=== PATIENT | male | born 1955 | race Caucasian/White ===

== ENCOUNTER 2016-06-20 17:50 | Emergency (ER) | payer OTHER ==
--- NOTE | 2016-06-20 18:10 | CPEKG ---
Heart Rate: 100 RR Interval: 600 QRSD Interval: 94 QT Interval: 364 QTC Interval: 470 QRS Dorr: -18 T Wave Dorr: 6 EKG Severity - ABNORMAL ECG - EKG Impression: NSR, Rate approx. 80 - (motion artifact due to Parkinson's) EKG Impression: BORDERLINE LEFT AXIS DEVIATION Electronically Signed By: Jimbo Reed 21-Jun-2016 00:05:50
[2016-06-20 18:34] VITALS: RESP 16
[2016-06-20 18:35] LABS: % IMMATURE GRANULYOCYTES 0.5 % (0.0-1.1); ABSOLUTE IMMATURE GRANULOCYTES 0.05 10^3/uL (0.00-0.10); ADD DIFF? NO; ADD MORPH? NO; ADD SCAN? NO; ATYPICAL LYMPHOCYTE FLAG 0 (0-99); FRAGMENT RBC FLAG 0 (0-99); HEMATOCRIT 46.7 % (40.0-51.0); HEMOGLOBIN 15.4 g/dL (13.7-17.5); LEFT SHIFT FLG 0 (0-99); LIPEMIA HEMOLYSIS FLAG 80 (0-99); MEAN CELL HEMOGLOBIN 29.3 pg (27.9-34.1); MEAN PLATELET VOLUME 9.5 fL (8.7-11.7); PLATELET CLUMPS FLAG 0 (0-99); PLATELET COUNT 310 10^3/uL (150-400); RED BLOOD CELL COUNT 5.25 10^6/uL (4.40-6.38); RED CELL DISTRIBUTION WIDTH 13.4 % (11.5-15.2)
[2016-06-20 18:37] LABS: COLOR YELLOW; LEUKOCYTE ESTERASE,URINE NEGATIVE (NEGATIVE); NITRITE,URINE NEGATIVE (NEGATIVE); PH,URINE 5.5 (5.0-7.5)
[2016-06-20 18:47] LABS: ANION GAP 13 mEq/L (8-16); CALCIUM 8.9 mg/dL (8.5-10.4); CARBON DIOXIDE 26 mEq/l (22-31); CHLORIDE 105 mEq/L (97-110); CREATININE 0.9 mg/dL (0.7-1.3); GLOMERULAR FILTRATION RATE > 60; GLUCOSE 100 mg/dL (70-100); POTASSIUM 4.1 mEq/L (3.5-5.2); SODIUM 144 mEq/L (134-144)
[2016-06-20 18:53] LABS: BACTERIA 1+ /hpf (NONE SEEN); HYALINE CASTS 0-1 /lpf (0-1); MUCUS 3+ /lpf (NONE-1+); RBC,URINE OCCASIONAL /hpf (0-3)
[2016-06-20 19:07] LABS: TROPONIN I 0.014 ng/mL (0-0.034)
[2016-06-20 19:35] VITALS: O2SAT 94
--- NOTE | 2016-06-20 20:03 | UCPHY ---
H & P Patient Type: Established Chief Complaint Nursing Narrative: C/o high BP (systolic 195) when checked at [facility], feeling flushed, L arm pain, dry mouth, L arm tremors that is not going away after Parkinson's medications, and trouble urinating. Denies SOB, chest pain. Time Seen by Provider: 06/20/16 17:58 HPI/ROS: This patient complains of hypertension and anxiety. He has a history of Parkinson's disease and they have been trying to titrate his carbidopa levodopa to leave eat some of his tremors but he has had some anxiety and racing thoughts with higher dosages. He was recently prescribed Seroquel for sleep. He is also taking Xanax p.r.n.. He had 0.25 mg at 5:30 p.m.. Despite compliance with his lisinopril 5 mg he has had significant hypertension over the past 24 hours. He also reports intermittent left arm ache that he thinks may be due to his Parkinson's tremor. He describes this is near his shoulder but because of the hypertension him the arm achy want to be sure that he was not having a heart problem. ROS: No fevers or chills. No constitutional symptoms. HEENT: He has a mild frontal 2/10 headache similar to previous headaches. Endocrine: Reports feeling slightly hot but no other endocrine symptoms. Pulmonary: No shortness of breath or coughing. Cardiovascular: No lightheadedness or heart palpitations. No lower extremity swelling. No diaphoresis GI: No nausea vomiting. No belly pain. Psychiatric: He admits some anxiety and asks "is (he) going crazy. He denies any focal neuro complaints. 10 point ROS is otherwise negative Source: Patient, Family (His also provides history.) Exam Limitations: No limitations - Personal History Current Tetanus Diphtheria and Acellular Pertussis (TDAP): Yes Tetanus Vaccine Date: within 10 years - Medical/Surgical History PMH: Parkinson's Hx Asthma: No Hx Chronic Respiratory Disease: No Hx Diabetes: No Hx Cardiac Disease: No Hx Renal Disease: Yes Hx Cirrhosis: No Hx Alcoholism: No Hx HIV/AIDS: No Hx Splenectomy or Spleen Trauma: No Other PMH: parkinsons, renal ca with surgery (RCC), hernia, thyroid cancer, melanoma, HTN, anxiety - Family History Significant Family History: No pertinent family hx - Social History Smoking Status: Never smoked Alcohol Use: None Drug Use: None - Physical Exam Exam: General Appearance: Alert, no distress. Eyes: Pupils equal and round no pallor or injection. ENT, Mouth: Mucous membranes moist. Respiratory: There are no retractions, lungs are clear to auscultation. Cardiovascular: Regular rate and rhythm. No murmur gallop or rub. No JVD. No peripheral edema. Gastrointestinal: Abdomen is soft and nontender, no masses, bowel sounds normal. Neurological: Alert. He has a parkinsonian tremor most prevalent his upper extremities. Skin: Warm and dry, no rashes. Musculoskeletal: Neck is supple nontender. Extremities are symmetrical, full range of motion. Psychiatric: Patient is anxious. He has mild flight of ideas but no psychotic symptoms. He is pleasant cooperative while here. DIFFERENTIAL DIAGNOSIS: After history and physical exam differential diagnosis was considered for Parkinson med side effects, anxiety, hypertensive urgency versus emergency Constitutional: Initial Vital Signs Temperature (C) 37.3 C 06/20/16 18:00 Heart Rate 101 H 06/20/16 18:00 Respiratory Rate 18 06/20/16 18:00 Blood Pressure 183/133 H 06/20/16 18:00 O2 Sat (%) 96 06/20/16 18:00 O2 Delivery Mode Room Air Allergies/Adverse Reactions: aspirin Allergy (Unknown, Verified 06/20/16 18:10) Unknown naproxen sodium [From Aleve] Allergy (Unknown, Verified 06/20/16 18:10) Anaphylaxis HORSE SERUM Allergy (Severe, Uncoded 06/20/16 18:10) Anaphylaxis Home Medications: Medication Instructions Recorded Levothyroxine [Synthroid 150 mcg 04/16/13 (RX)] Rasagiline Mesylate [Azilect] 04/16/13 Carbidopa/Levodopa [SINEMET 25-100 04/24/13 MG TABLET] Lisinopril 06/20/16 Metoprolol Tartrate [Lopressor 25 25 mg PO BID #30 tab 06/20/16 mg (*)] Rytary ER 23.75 mg-95 mg Cap 06/20/16 Seroquel 06/20/16 Xanax 06/20/16 Medical Decision Making - Diagnostics EKG Interpretation: 12 lead EKG performed shortly after arrival was read by the computer as a flutter but this was an air due to his tremor. He is actually normal sinus rhythm at approximately 80. Intervals normal, axis is normal. Please refer to trace master for complete read. Appreciate no ischemic findings on this EKG ED Course/Re-evaluation: IV, monitor, clonidine 0.2 with relief of anxiety and improvement in his blood pressure. After workup, no evidence of significant end-organ injury. I counseled the patient regarding this. We will start him on metoprolol to take in addition to his lisinopril. He will follow up with his primary care physician. - Data Points Laboratory Results: Laboratory Results 06/20/16 18:20 06/20/16 18:20 06/20/16 18:20 WBC 9.87 H 10^3/uL (3.80-9.50) RBC 5.25 10^6/uL (4.40-6.38) Hgb 15.4 g/dL (13.7-17.5) Hct 46.7 % (40.0-51.0) MCV 89.0 fL (81.5-99.8) MCH 29.3 pg (27.9-34.1) MCHC 33.0 g/dL (32.4-36.7) RDW 13.4 % (11.5-15.2) Plt Count 310 10^3/uL (150-400) MPV 9.5 fL (8.7-11.7) Neut % (Auto) 76.3 H % (39.3-74.2) Lymph % (Auto) 10.0 L % (15.0-45.0) [place] % (Auto) 11.1 % (4.5-13.0) Eos % (Auto) 1.7 % (0.6-7.6) Baso % (Auto) 0.4 % (0.3-1.7) Nucleat RBC Rel Count 0.0 % (0.0-0.2) Absolute Neuts (auto) 7.52 H 10^3/uL (1.70-6.50) Absolute Lymphs (auto) 0.99 L 10^3/uL (1.00-3.00) Absolute Monos (auto) 1.10 H 10^3/uL (0.30-0.80) Absolute Eos (auto) 0.17 10^3/uL (0.03-0.40) Absolute Basos (auto) 0.04 10^3/uL (0.02-0.10) Absolute Nucleated RBC 0.00 10^3/uL (0-0.01) Immature Gran % 0.5 % (0.0-1.1) Immature Gran # 0.05 10^3/uL (0.00-0.10) Sodium 144 mEq/L (134-144) Potassium 4.1 mEq/L (3.5-5.2) Chloride 105 mEq/L (97-110) Carbon Dioxide 26 mEq/l (22-31) Anion Gap 13 mEq/L (8-16) BUN 17 mg/dL (7-23) Creatinine 0.9 mg/dL (0.7-1.3) Estimated GFR > 60 Glucose 100 mg/dL (70-100) Calcium 8.9 mg/dL (8.5-10.4) Troponin I 0.014 ng/mL (0-0.034) TSH 1.940 uIU/mL (0.465-4.680) Urine Color YELLOW Urine Appearance CLEAR Urine pH 5.5 (5.0-7.5) Ur Specific [place] >= 1.030 (1.002-1.030) Urine Protein 1+ H (NEGATIVE) Urine Ketones TRACE H (NEGATIVE) Urine Blood NEGATIVE (NEGATIVE) Urine Nitrate NEGATIVE (NEGATIVE) Urine Bilirubin NEGATIVE (NEGATIVE) Urine Urobilinogen 0.2 EU (0.2-1.0) Ur Leukocyte Esterase NEGATIVE (NEGATIVE) Urine RBC OCCASIONAL /hpf (0-3) Urine WBC 3-5 H /hpf (0-3) Ur Epithelial Cells 1+ /lpf (NONE-1+) Urine Bacteria 1+ H /hpf (NONE SEEN) Hyaline Casts 0-1 /lpf (0-1) Urine Mucus 3+ H /lpf (NONE-1+) Urine Glucose NEGATIVE (NEGATIVE) Medications Given: Discontinued Medications Clonidine (Catapres) 0.2 mg PO EDNOW ONE Stop: 06/20/16 18:51 Last Admin: 06/20/16 18:56 Dose: 0.2 mg Departure - Departure Disposition: Home, Routine, Self-Care Clinical Impression: Hypertensive urgency, Anxiety Condition: Good Instructions: Hypertension (ED), Anxiety (ED) Additional Instructions: Diagnoses: 1. Hypertensive urgency 2. Anxiety Plan: Start metoprolol blood pressure medicine tomorrow and continue her lisinopril Call primary care physician to arrange follow-up appointment for this week-in 2- 5 days Go to the emergency department for any significant worsening of her symptoms despite the treatment plan. Referrals: ED MEJIA [Primary Care Provider] - As per Instructions Prescriptions: Metoprolol Tartrate [Lopressor 25 mg (*)] 25 mg PO BID #30 tab - PQRS PQRS Measurement: NA
[2016-06-20 20:30] VITALS: BP 154/108; PULSE 95; TEMP 98.6
== END 2016-06-20 20:30 | disposition home or self-care (01) ==
LOC: CED 17:50
DX: I10 Essential (primary) hypertension (principal); F41.9 Anxiety disorder, unspecified; G20 Parkinson's disease
CPT/HCPCS: 80048-PO; 81003-PO; 81015-PO; 84443-PO; 84484-PO; 85025-PO; 93010-PO; 99215-PO; G0463-PO

== ENCOUNTER → 2016-07-20 | Outpatient (CLI) | payer OTHER | LOC: CIMAGING 15:24 | PROVIDERS: ATTEND Specialist | DX: N20.0 Calculus of kidney (principal); N28.89 Other specified disorders of kidney and ureter; K80.20 Calculus of gallbladder without cholecystitis without obstruction; K57.30 Diverticulosis of large intestine without perforation or abscess without bleeding | CPT/HCPCS: 74176-PO ==

== ENCOUNTER → 2016-12-27 | Outpatient (CLI) | payer OTHER ==
[~2016-12-27] MED LIST: IOPAMIDOL (ISOVUE-300) 100 ML BTL ONE
== END ==
LOC: CIMAGING 09:17
PROVIDERS: ATTEND Specialist
DX: Z08 Encounter for follow-up examination after completed treatment for malignant neoplasm (principal); C64.9 Malignant neoplasm of unspecified kidney, except renal pelvis; K80.20 Calculus of gallbladder without cholecystitis without obstruction; N20.0 Calculus of kidney; Z90.5 Acquired absence of kidney
CPT/HCPCS: 74170-PO; Q9967

== ENCOUNTER 2017-03-31 11:46 | Outpatient (CLI) | payer OTHER ==
[2017-03-31] MEDS ORDERED: PROPOFOL 200 MG/20 ML VIAL ONE (11:58)
[2017-03-31] MEDS ORDERED: GADOBUTROL 10 ML VIAL IVP ONE (12:01)
[2017-03-31] MEDS ORDERED: PROPOFOL/EMULSION 500 MG/50 ML BOTTLE IV ONE (13:06)
[2017-03-31] MEDS ORDERED: MIDAZOLAM 2 MG/2 ML VIAL ONE (13:32)
[2017-03-31 15:10] VITALS: TEMP 97
[2017-03-31] MEDS ORDERED: SODIUM CL 0.9% 20 ML VIAL ONE (15:25)
[2017-03-31 16:07] VITALS: BP 134/97; PULSE 88; RESP 14; O2SAT 92
== END 2017-03-31 16:15 | disposition home or self-care (01) ==
LOC: FIMAGING 11:46
DX: G20 Parkinson's disease (principal)
CPT/HCPCS: A9585; J2250; J2704

== ENCOUNTER → 2018-04-27 | Outpatient (CLI) | payer OTHER ==
[~2018-04-27] MED LIST changes: +IOPAMIDOL (ISOVUE 370) 100 ML BTL IV ONE; -IOPAMIDOL (ISOVUE-300) 100 ML BTL ONE
== END ==
LOC: CIMAGING 14:20
PROVIDERS: ATTEND Specialist
DX: N28.89 Other specified disorders of kidney and ureter (principal); R91.1 Solitary pulmonary nodule; Z85.528 Personal history of other malignant neoplasm of kidney
CPT/HCPCS: 74178-PO; 82565-PO; Q9967